=== PATIENT | female | born 1950 | race Hispanic/Latino ===

== ENCOUNTER → 2021-05-13 | Outpatient (CLI) | payer MEDICARE ==
[~2021-05-13] MED LIST: ASPI-556 PO; GABA300S PO; MELO-106 PO; OLME20TA10 PO; PENT400T72 PO; PRAS10TA6 PO; SIMV10TA97 PO
== END | disposition home or self-care (01) ==
LOC: OIH 08:43
PROVIDERS: ATTEND Internal Medicine Cardiovascular Disease
DX: K57.30 Diverticulosis of large intestine without perforation or abscess without bleeding (principal); Z90.49 Acquired absence of other specified parts of digestive tract
CPT/HCPCS: 74176

== ENCOUNTER 2025-03-27 07:54 | Day surgery (SDC) | payer MEDICARE ==
[~2025-03-27] VITALS: Ht 152.4 cm; Wt 79.8 kg
[2025-03-27] VITALS (11 sets, daily range): BP systolic 114–151; BP diastolic 52–79; PULSE 60–97; RESP 15–18; TEMP 97–97.8
[~2025-03-27 07:54] MED LIST changes: -GABA300S PO; +GABA300S3 PO; -OLME20TA10 PO; +OLME20TA73 PO; +PRAS10TA20 PO; -PRAS10TA6 PO
[2025-03-27] MEDS ORDERED: DOXA1TAB2 PO (08:20)
[2025-03-27] MEDS ORDERED: MULT-1203 PO (08:20)
[2025-03-27] MEDS ORDERED: CHOL500062 PO (08:20)
[2025-03-27] MEDS ORDERED: SUCR1TAB2 PO (08:20)
[2025-03-27] MEDS ORDERED: ESOM40CA66 PO (08:20)
[2025-03-27] MEDS ORDERED: ATOR10 PO (08:20)
[2025-03-27] MEDS ORDERED: FERSL PO (08:20)
[2025-03-27] MEDS ORDERED: DOCU100C33 PO (08:20)
[2025-03-27] MEDS ORDERED: LORA10TA7 PO (08:20)
[2025-03-27] MEDS: 0.9%NACL 1000ML 1,000 ML IV ONE (09:00)
[2025-03-27] MEDS ORDERED: MIDAZOLAM HCL 1 MG/ML 2ML VIAL ONE (09:22)
--- NOTE | 2025-03-27 10:25 | NUR ---
GIVEN REPORT VIA TELEPHONE TO STACIA LOPEZ FROM [facility]. PEG TUBE REMOVED SLIGHT RED DISCOLORATION TO 4X4 GAUZE. NO ACTIVE BLEEDING OR DRAINAGE NOTED. 4X4 TEGADERM DRY AND INTACT.
== END 2025-03-27 10:46 | disposition home or self-care (01) ==
LOC: ENDO 07:54 → DAH 07:54 → ENDO 10:46
PROVIDERS: ATTEND Internal Medicine Gastroenterology
DX: R13.10 Dysphagia, unspecified (principal); T18.2XXA Foreign body in stomach, initial encounter; K29.50 Unspecified chronic gastritis without bleeding; K59.04 Chronic idiopathic constipation; E78.00 Pure hypercholesterolemia, unspecified; K21.9 Gastro-esophageal reflux disease without esophagitis; M19.90 Unspecified osteoarthritis, unspecified site; Z93.1 Gastrostomy status; Z90.89 Acquired absence of other organs; Z79.899 Other long term (current) drug therapy; Z98.890 Other specified postprocedural states; W44.F1XA Bezoar entering into or through a natural orifice, initial encounter
CPT/HCPCS: 43247; J7030; J2704; A4620; A4215 ×2; A4223; A4222; A4221; A4663; A4606; J2250; J3010; J3490